=== PATIENT | female | born 1935 | race Caucasian/White ===

== ENCOUNTER 2019-10-24 07:30 | Outpatient (RCR) | payer MEDICARE, OTHER, SELFPAY | END 2019-11-13 00:01 | LOC: GPT 07:30 | PROVIDERS: Family Provider Family Medicine; Visit Provider Physician Assistant | DX: S42.002D Fracture of unspecified part of left clavicle, subsequent encounter for fracture with routine healing (principal); X58.XXXD Exposure to other specified factors, subsequent encounter; M25.662 Stiffness of left knee, not elsewhere classified | CPT/HCPCS: 97110 ×4; 97140 ×4; 97161 ==

== ENCOUNTER 2020-01-10 07:21 | Outpatient (RCR) | payer MEDICARE, OTHER, SELFPAY | END 2020-01-12 23:59 | disposition home or self-care (01) | LOC: GPT 07:21 | PROVIDERS: Absent Provider Orthopaedic Surgery; Family Provider Family Medicine; PCP Family Medicine; Referring Provider Orthopaedic Surgery; Visit Provider Orthopaedic Surgery | DX: S42.022S Displaced fracture of shaft of left clavicle, sequela (principal); X58.XXXS Exposure to other specified factors, sequela; M25.662 Stiffness of left knee, not elsewhere classified | CPT/HCPCS: 97110; 97161; 97530 ==

== ENCOUNTER 2020-01-13 06:00 | Outpatient (RCR) | payer MEDICARE, OTHER, SELFPAY | END 2020-02-12 23:59 | disposition home or self-care (01) | LOC: GPT 06:00 | PROVIDERS: Absent Provider Orthopaedic Surgery; Family Provider Family Medicine; PCP Family Medicine; Referring Provider Orthopaedic Surgery; Visit Provider Orthopaedic Surgery | DX: M21.262 Flexion deformity, left knee (principal); M19.012 Primary osteoarthritis, left shoulder; M25.512 Pain in left shoulder; R53.1 Weakness | CPT/HCPCS: 97110; 97140 ==

== ENCOUNTER 2020-02-13 06:00 | Outpatient (RCR) | payer MEDICARE, OTHER, SELFPAY | END 2020-03-13 23:59 | disposition home or self-care (01) | LOC: GPT 06:00 | PROVIDERS: Absent Provider Orthopaedic Surgery; Family Provider Family Medicine; PCP Family Medicine; Referring Provider Orthopaedic Surgery; Visit Provider Orthopaedic Surgery | DX: S42.022S Displaced fracture of shaft of left clavicle, sequela (principal); M25.662 Stiffness of left knee, not elsewhere classified; M25.60 Stiffness of unspecified joint, not elsewhere classified; R54 Age-related physical debility | CPT/HCPCS: 97110; 97140; 97164 ==